=== PATIENT | male | born 1965 | race Caucasian/White ===

== ENCOUNTER 2024-06-21 12:52 | Observation (INO) | payer OTHER, SELFPAY ==
[2024-06-21] VITALS (11 sets, daily range): BP systolic 136–169; BP diastolic 66–98; BMI 25.2
--- NOTE | 2024-06-21 07:09 | ED.GENMED ---
History of Present Illness
<Arelis Kahn PA-C - Last Filed: 06/21/24 10:31>
General
Chief Complaint: Chest Pain
Source: patient
Exam Limitations: none
Time Seen by Provider: 06/21/24 07:09
Nursing documentation reviewed up to this point in time: agreed with
History of Present Illness
History of Present Illness:
58 y/o M
smoker
no cardiac history
here with n/v chest pain that started this morning
nausea/vomiting started around 130 am
he vomited a few times
and then developed chest pressure shortly after around 2am
he didn't tell his about it until 6 am and at that time it was 8/10. pt has no pleuritic pain, feels pressure in his chest
feels wiped out, chills
denies cough/cold sypmtoms
was just out of town for a
no fhx of cad
no h/o htn, hld
does drink 5 days a week
has had some weight loss since xmas; doesn't have appetite
Phy Exam
<Arelis Kahn PA-C - Last Filed: 06/21/24 10:31>
Physical Exam
Physical Exam:
GENERAL: Alert , in no apparent distress
EYE: pupils equal and reactive icteric
NECK: Supple
ENT: o/p clr, mmm.
CARDIAC: Regular rate and rhythm .
LUNGS: Clear breath sounds bilaterally, no acute respiratory distress, no wheezes/rales/rhonchi
ABDOMEN: Soft, without focal tenderness, no r/g, no cvat, normal bowel sounds
NEUROLOGICAL: Alert and oriented, no focal neuro deficits
SKIN: Warm and dry, skin intact. Pale
MUSCULOSKELETAL: No edema, well perfused. neg verónica's sign
PSYCH: Normal and appropriate interaction.
Scores
<Arelis Kahn PA-C - Last Filed: 06/21/24 10:31>
Heart Score for Chest Pain Patients
STEMI patient?: No
History: Moderately Suspicious
ECG: Nonspecific Repolarization
Age: >45 - <65 years
Risk Factors: 1 or 2 Risk Factors
Troponin: </= Normal Limit
Heart Score for Chest Pain Patients: 4
Heart Score Risk: 20.3% MACE over next 6 weeks
Course
<Arelis Kahn PA-C - Last Filed: 06/21/24 10:31>
Orders/Labs/Results
Orders:
Orders
06/21/24 07:00
EKG [Electrocardiogram (*1)] Urgent
Reason for Study: Shortness of Breath
EKG- Treatment ONCE
06/21/24 07:15
CMP [Comprehensive Metabolic Panel] Urgent
Complete Blood Count/With Diff Urgent
Lipase Urgent
Magnesium Urgent
TSH Reflex To Free T4 Urgent
Comment: ADD
Troponin I Urgent
06/21/24 07:17
0.9% Sodium Chloride 1000 ml [Nss] 1,000 ml IV BOLUS
Ondansetron Injectable [Zofran] 4 mg IV NOW STA
06/21/24 07:33
Electrocardiogram (*1) Urgent
Reason for Study: Chest Pain
EKG- Treatment ONCE
06/21/24 07:37
COVID-19 Antigen Urgent
Source: Nasal Swab
Influenza A+B Rapid Molecular Urgent
MERON Source: Nasal Swab
Specimen Description:
06/21/24 07:58
CT Abd/Pel (IV only)-DH only Urgent
Comment:
Reason For Exam: vomiting, abd pain,
CR Chest - 2 Views Urgent
Comment:
Reason For Exam: ches tpain
06/21/24 08:10
Add On- LAB Urgent
Tests Added?: magnesium, tsh reflex t4
06/21/24 08:21
Add On- LAB Urgent
Tests Added?: magnesium
06/21/24 08:36
Echo 2D MMode Color/Doppler Urgent
Reason for Study: N/V, CP
06/21/24 09:59
Troponin I Routine
Abnormal Lab Results
06/21/24
07:15
WBC 12.5 H 10^3/uL
(4.8-10.8)
Absolute Neuts (auto) 11.6 H 10^3/uL
(1.4-6.5)
Absolute Lymphs (auto) 0.6 L 10^3/uL
(1.2-3.4)
Neutrophils % 93.1 H %
(42.2-75.2)
Lymphocytes % 5.1 L %
(20.5-51.1)
Monocytes % 1.2 L %
(1.7-9.3)
Glucose 178 H mg/dl
(70-99)
06/21/24 07:15
06/21/24 07:15
Vital Signs
Initial and Last Documented VS:
Initial Vital Signs
Temp Pulse Resp BP Pulse Ox
36.7 C 59 16 136/89 99
06/21/24 07:00 06/21/24 07:00 06/21/24 07:00 06/21/24 07:00 06/21/24 07:00
Last Documented Vital Signs
Temp Pulse Resp BP Pulse Ox
36.7 C 51 14 157/90 100
06/21/24 07:00 06/21/24 09:00 06/21/24 09:00 06/21/24 09:00 06/21/24 09:00
<Nito Morris, DO - Last Filed: 06/21/24 08:20>
Orders/Labs/Results
Orders:
Orders
06/21/24 07:00
EKG [Electrocardiogram (*1)] Urgent
Reason for Study: Shortness of Breath
EKG- Treatment ONCE
06/21/24 07:15
CMP [Comprehensive Metabolic Panel] Urgent
Complete Blood Count/With Diff Urgent
Lipase Urgent
Magnesium Urgent
TSH Reflex To Free T4 Urgent
Comment: ADD
Troponin I Urgent
06/21/24 07:17
0.9% Sodium Chloride 1000 ml [Nss] 1,000 ml IV BOLUS
Ondansetron Injectable [Zofran] 4 mg IV NOW STA
06/21/24 07:33
Electrocardiogram (*1) Urgent
Reason for Study: Chest Pain
EKG- Treatment ONCE
06/21/24 07:37
COVID-19 Antigen Urgent
Source: Nasal Swab
Influenza A+B Rapid Molecular Urgent
MERON Source: Nasal Swab
Specimen Description:
06/21/24 07:58
CT Abd/Pel (IV only)-DH only Urgent
Comment:
Reason For Exam: vomiting, abd pain,
CR Chest - 2 Views Urgent
Comment:
Reason For Exam: ches tpain
06/21/24 08:10
Add On- LAB Urgent
Tests Added?: magnesium, tsh reflex t4
06/21/24 08:21
Add On- LAB Urgent
Tests Added?: magnesium
06/21/24 08:36
Echo 2D MMode Color/Doppler Urgent
Reason for Study: N/V, CP
06/21/24 09:59
Troponin I Routine
Abnormal Lab Results
06/21/24
07:15
WBC 12.5 H 10^3/uL
(4.8-10.8)
Absolute Neuts (auto) 11.6 H 10^3/uL
(1.4-6.5)
Absolute Lymphs (auto) 0.6 L 10^3/uL
(1.2-3.4)
Neutrophils % 93.1 H %
(42.2-75.2)
Lymphocytes % 5.1 L %
(20.5-51.1)
Monocytes % 1.2 L %
(1.7-9.3)
Glucose 178 H mg/dl
(70-99)
06/21/24 07:15
06/21/24 07:15
Vital Signs
Initial and Last Documented VS:
Initial Vital Signs
Temp Pulse Resp BP Pulse Ox
36.7 C 59 16 136/89 99
06/21/24 07:00 06/21/24 07:00 06/21/24 07:00 06/21/24 07:00 06/21/24 07:00
Last Documented Vital Signs
Temp Pulse Resp BP Pulse Ox
36.7 C 51 14 157/90 100
06/21/24 07:00 06/21/24 09:00 06/21/24 09:00 06/21/24 09:00 06/21/24 09:00
<Arelis Kahn PA-C - Last Filed: 06/21/24 10:31>
MDM/Problems Addressed
MDM/Problems Addressed:
irasema grahamnan 58 y/o M smoker, drinker
here with n/v since 130 am, also with chest discomfort since 2 am,
ems gave nitro and asa and it got a little better
initial ekg st elevation v2, v3 possibly
repeat looked alittle better, 1st trop neg
had a few loing pauses on th emonitor, pt was asymptomatic;
not vomiting during the pauses
printed the strips and pt was seen by SIRIA meneses who ordered echo and recommended 2nd trop which is being drawn now
pt's wbc 12.[address] shows mild diffuse colitis; feel best to keep for IVF and tele monitoring; no diarrhea;
<Arelis Kahn PA-C - Last Filed: 06/21/24 10:31>
*Critical Care Note
Total Time (30-74mins, 75-104mins- exclusive of procedures): Not Applicable
ED Attending Note
<Arelis Kahn PA-C - Last Filed: 06/21/24 10:31>
-
Portions of this chart may have been created with voice recognition software.� Occasional wrong word or��sound alike� substitutions may have occurred due to the inherent limitations of voice recognition software.
<Nito Morris DO - Last Filed: 06/21/24 08:20>
ED Attending Note
Patient seen and examined by attending physician: Yes
I performed the substantive portion of visit, reviewed & personally made and approve the management plan that is documented in note by myself or OWEN.: Yes
ED Attending Note:
Seen with PA examined independently reviewed with nursing 58-year-old male present with chest pain nausea had some alcohol last night had some bradycardic on the monitor he was asymptomatic, will check his electrolytes, CT scan of his abdomen
pending, cardiology consultation pending
Discharge Plan
Departure
Patient Disposition: Admit
Date of Disposition: 06/21/24
Time of Disposition: 09:29
Admit to: Telemetry
Presentation/result/management discussed w/ accepting MD/DO: Hospitalist
Condition: Fair
Covid-19: Not Applicable
Discharge Problem:
Gastroenteritis, Chest pain, Sinus pause
Prescriptions:
No Action
No Current Medications
0
Referrals:
Cara Melendez CRNP [Specified Professional Personl] - 07/05/24 4:00 pm (You have a cardiology follow-up appointment at the [place] office [address]. Please call with questions)
UNKNOWN - PT DOES,NOT KNOW [Family Provider] -
Interventions
Interventions:
*Risk Screen - Suicide Last Done: 06/21/24 07:00
*General Assessment Last Done: 06/21/24 07:00
*Neglect/Abuse Screening Last Done: 06/21/24 07:00
*ED- Fall Risk Assessment Last Done: 06/21/24 08:26
*ED COVID-19 Vaccine History Last Done: 06/21/24 07:00
ED- Cardiac Assessment Last Done: 06/21/24 07:10
Discharge Date and Time
Print Language: YORUBA
--- NOTE | 2024-06-21 07:15 | EDRN ---
Received patient via EMS with c/o chest pain that started this morning around 0200 after he vomited multiple times. Patient received ASA 324 mg and NTG SL x1 by EMS. Patient thinks his chest pain got better. Denies abdominal pain.
[2024-06-21 07:32] LABS: % Basophils 0.3 % (0-2); % Immature Granulocytes 0.3 % (0-0.5); % Lymphocytes 5.1 % (20.5-51.1); % Monocytes 1.2 % (1.7-9.3); % Neutrophils 93.1 % (42.2-75.2); Absolute Lymphocytes 0.6 10^3/uL (1.2-3.4); Absolute Monocytes 0.2 10^3/uL (0.1-0.6); Absolute Neutrophils 11.6 10^3/uL (1.4-6.5); Hematocrit 49.5 % (39.0-52.0); Hemoglobin 16.8 g/dL (13.0-18.0); Mean Corp Hgb Conc. 33.9 g/dL (33.0-37.0); Mean Corpuscular Hgb 30.1 pg (27.0-31.0); Mean Corpuscular Volume 88.7 fL (80.0-94.0); Mean Platelet Volume 9.7 fL (7.4-10.4); Nucleated Red Blood Cells % 0 % (-); Platelet Count 310 10^3/uL (130-400); Red Blood Cell Count 5.58 10^6/uL (4.70-6.10); Red Cell Dist. Width 14.2 % (11.5-14.5); White Blood Cell Count 12.5 10^3/uL (4.8-10.8)
[2024-06-21] MEDS: NSS 1000 IV (07:36)
[2024-06-21] MEDS: ZOFRAN 4 MG IV ×2 (07:36→16:02)
[2024-06-21 07:44] LABS: ALT (SGPT) 24 U/L (0-50); AST (SGOT) 26 U/L (17-59); Albumin 4.3 g/dl (3.5-5.0); Alkaline Phosphatase 63 U/L (38-126); Blood Urea Nitrogen 20 mg/dl (9-20); Calcium 9.8 mg/dl (8.4-10.2); Carbon Dioxide 26 mmol/L (22-30); Chloride 106 mmol/L (98-107); Estimated Creatinine Clearance 102 ml/min; Glucose 178 mg/dl (70-99); Lipase 83 U/L (23-300); Potassium 4.8 mmol/L (3.5-5.1); Sodium 140 mmol/L (135-145); Total Bilirubin 0.7 mg/dl (0.2-1.3); Total Protein 6.7 g/dl (6.3-8.2); eGFR > 60.00
--- NOTE | 2024-06-21 07:55 | EDRN ---
Repeat EKG done as ordered. Patient turned onto his left side to get comfortable. Monitor started to alarm ST >120. Patient briefly with heart rate 133 then went into a pause then Afib then back into SB with occasional pauses. Patient asymptomatic.
Rhythm strips printed and reviewed by Arelis Kahn PA-C and .
[2024-06-21 07:56] LABS: Troponin I < 0.012 ng/ml
--- NOTE | 2024-06-21 08:42 | CON.CAR ---
Addendum entered and electronically signed by Niraj Lyman MD 06/21/24 10:08:
58-year-old man with probable moderate alcohol use, on no outpatient medications and little past medical history, current smoker, with nausea vomiting and chest discomfort this morning, pain at 8 out of 10 in severity, described as pressure. Still
nauseated, chest discomfort has resolved. He resumed smoking for 5 months ago having been abstinent for years. He has 3-4 beers 5 days a week
157/90, pulse 51, respirate 14, sats 100%, head neck exam unremarkable, lungs are clear, regular rate and rhythm no obvious murmurs JVD okay no obvious bruits, abdomen soft nontender, extremities without edema
Chest x-ray NAD,
CT scan possible colitis, small hiatal hernia, possible gastritis, some calcific plaque in abdominal aorta
Echo: Pending
EKG sinus bradycardia, possible septal MT, nonspecific ST elevation, slightly less apparent on second tracing
White count 12.5, hemoglobin 16.8, left shift, glucose 178, troponin undetectable, COVID-negative
Impression:
Suspected gastroenteritis
Chest discomfort
Tobacco use
Alcohol use
Atherosclerosis of abdominal aorta
Plan:
Although his EKG is not entirely normal, it seems most likely that he has a viral gastroenteritis. Currently he is without chest discomfort, and his first troponin is undetectable. It will be important to await the second troponin. Will check an
an echo to assess LV wall motion as well.
From a rhythm standpoint, he has brief episodes of what seems to be an accelerated atrial rhythm/slow atrial tachycardia with pauses, suspect all vagally mediated.
If he is admitted for gastrointestinal symptoms, would place on telemetry. Will await echo. No specific cardiac therapy required at present. If he is discharged from the emergency department we will set up outpatient follow-up.
Importance of smoking cessation stressed. Strongly recommended reduction or abstinence from alcohol as well.
Given atherosclerotic change of aorta, we will have a low threshold for statin therapy. Aspirin is probably optional but could be considered given evidence of atherosclerotic disease.
We will await troponin and echo. If second troponin is negative, stress testing probably optional or not needed.
Original Note:
Consultation
Consultation Request
Date/Time Consultation Performed: 06/21/24
Requesting Provider: Dr. Morris
Performing Provider: Antonina Dunbar PA-C for Dr. SIRIA Lyman
Reason for Consultation: CP
Medical History
-
Chief Complaint: N/V, CP
History of Present Illness:
Patient is a 58-year-old male with past medical history of several lipoma removals however no cardiac history who presents to [facility] for evaluation of nausea vomiting/chest pain. He states that he awoke at 1:30 AM with nausea and vomiting
followed by left to central chest discomfort which she describes as a dull/achy pressure. He denies radiation of pain. He was given aspirin and sublingual nitro in the ER with some improvement. Reports his discomfort is mild at present. He
denies lightheadedness or dizziness. Does report feelings of fevers and chills. He reports he vomited multiple times including once in the ER. He remains with some nausea, however this is calming down status post Zofran. They had traveled over
the weekend for a . No sick contacts. Initial troponin negative. Cardiology consulted for evaluation. Patient's endorses that work has been very stressful for patient recently. Denies recent limitations in activity, or chest
discomfort/shortness of breath with exertion. Covid/flu negative in ER.
PMH:
Lipoma removal
Tobacco use
Past Medical History
Past Medical History: Other (in HPI)
Social History
Tobacco: Smoker
Alcohol: Occasional (2-3 beers 5 times per week)
Personal:
Living: With Family
Employment: Employed
Family History
Family History: Other (leukemia in father)
Allergies / Home Medications
Allergy/AdvReac Type Severity Reaction Status Date / Time
adhesive tape Allergy Rash Verified 06/21/24 07:08
Review of Systems
-
History Source: Patient and Family
All other systems: Negative unless noted
Physical Exam
Vital Signs
Temp Pulse Resp BP Pulse Ox
98.1 F 55 24 149/91 97
06/21/24 07:00 06/21/24 08:00 06/21/24 08:00 06/21/24 08:00 06/21/24 08:00
Lab Results
06/21/24 07:15
06/21/24 07:15
Troponin I < 0.012 ng/ml 06/21/24 07:15
Physical Exam
General: No Apparent Distress and Comfortable
HEENT: Normocephalic, Anicteric and Moist Mucous Membranes
Respiratory: Clear and Non Labored Respirations
Cardiac: S1/S2 and Regular Rhythm; Negative Murmur
GI: Soft and Normal Bowel Sounds
Musculoskeletal: No Clubbing, No Cyanosis and No Edema
Skin: Warm and Dry
Neuro: AO x 3
Impression / Plan
-
Primary Crankshaft Straightener: none prior to admission
Assessment:
Presentation with N/V, CP
Negative trop x1
Sinus bradycardia
Leukocytosis
Mild colitis by CTAP
Lipoma removal
Tobacco use
ECHO 06/21/24: pending
Plan:
-Patient presents with nausea and vomiting as well as chest discomfort starting overnight. covid/flu negative.
-Initial EKG with concern for possible mild septal ST elevation, however resolved by repeat EKG. no prior to compare. patient seen urgently in ER
-Status post 324 mg aspirin as well as sublingual nitro x 1 per patient/, presuming preER as not on med list here
-Initial troponin negative. Repeat
-Check urgent echo
-with some radha on tele, asymptomatic. possibly vagally mediated. follow on tele in ER. could consider for OP contract assistant
-Remains with some nausea, however reports improving status post Zofran
-With mild leukocytosis, and feelings of fever/chills. CXR and UA unrevealing. CTAP with evidence of mild colitis�defer treatment to ED/primary service
-Suspect noncardiac etiology of symptoms, however will follow results of testing
-Will arrange outpatient cardiac follow-up
-Discussed with patient and at bedside
Data Reviewed
-
EKG: Tracing Personally Visualized and interpreted
Radiology: Report Reviewed by me
CT Scan: Report Reviewed by me
Labs: Labs Reviewed by me
[2024-06-21 08:44] LABS: COVID-19 Antigen Negative (Negative)
[2024-06-21 09:20] LABS: Magnesium 1.9 mg/dl (1.6-2.3)
[2024-06-21 10:34] LABS: Troponin I < 0.012 ng/ml
--- NOTE | 2024-06-21 11:31 | HPS.HSE ---
Family Physician
-
Family Physician: NOT KNOW UNKNOWN - PT DOES
Chief Complaint
-
Chest pain, vomiting
History of Present Illness
58-year-old male who was awakened in the middle of the night with several episodes of severe vomiting and subsequently developed chest pain.
Denies any diarrhea. Denies any abdominal pain but feels sore as a result of vomiting. Denies any medical history. Has not been to his primary care doctor in over a year. Not on any home medications.
Travel to [facility] over the weekend. No one at home is ill.
Last ate at home, dinner last night.
Medical History
Past Medical History
Past Medical History: Reports None
Past Surgical History: Reports None
Social History
Tobacco: Smoker
Alcohol: Daily
Drug: Marijuana (Twice per week)
Personal:
Living: With Family
Family History
Family History: Not pertinent
Allergies / Home Medications
Allergies reflects when Allergies were last updated in [facility].
Home Medications with original date entered in [facility]
Allergy/Medication List:
Allergies
Allergy/AdvReac Type Severity Reaction Status Date / Time
adhesive tape Allergy Rash Verified 06/21/24 07:08
Home Medications
No Meds [No Current Medications] 06/21/24
Review of Systems
-
History Source: Patient
A 12 point ROS was completed and negative except as noted: Yes
Physical Exam
Vital Signs
Vital Signs
Temp Pulse Resp BP Pulse Ox
98.1 F 51 14 157/90 100
06/21/24 07:00 06/21/24 09:00 06/21/24 09:00 06/21/24 09:00 06/21/24 09:00
Physical Exam
General: Well Developed, Well Nourished, No Apparent Distress and Comfortable
HEENT: NormoCephalic, Anicteric and Moist mucous membranes
Respiratory: Clear
Cardiac: S1/S2 and Regular Rhythm
GI: Soft, Non Tender and Non Distended
Musculoskeletal: No Clubbing, No Cyanosis and No Edema
Skin: Warm and Dry
Neuro: AO x 3
Hematologic/Lymphatic: No Lymphadenopathy
Psych: Calm
Laboratory Results
-
06/21/24 07:15
06/21/24 07:15
Laboratory Results
Total Bilirubin 0.7 mg/dl (0.2-1.3) 06/21/24 07:15
AST 26 U/L (17-59) 06/21/24 07:15
ALT 24 U/L (0-50) 06/21/24 07:15
Alkaline Phosphatase 63 U/L (38-126) 06/21/24 07:15
Troponin I < 0.012 ng/ml 06/21/24 09:59
Lipase 83 U/L (23-300) 06/21/24 07:15
Impression/Plan
-
Intractable vomiting -likely due to acute gastritis. Denies diarrhea. Continue IV fluids, antiemetics. Clear liquid diet, advance as tolerated. Perhaps alcohol is playing a role with the vomiting. Blood work does not reveal ketosis.
CT abdomen/pelvis shows mild acute colitis but patient denies diarrhea. Moderate diverticulosis noted. Findings of moderate gastritis noted. He has never had an EGD, last colonoscopy was several years ago and reportedly unremarkable.
Chest pain -atypical and suspect related to vomiting induced esophagitis. Denies hematemesis. Troponins negative x 2. EKG with nonspecific changes. Appreciate cardiology input. Echocardiogram completed, report pending.
Elevated blood pressure -suspect undiagnosed essential hypertension. Patient does not check pressures at home. Has not been to his physician in quite some time. Recommend close outpatient follow-up.
Alcohol use disorder -recommend that he cut down. Currently drinks 5 days/week, mainly beer. Denies liquor. Watch for any withdrawal symptoms.
Tobacco dependence -abstinence encouraged.
Marijuana use -we discussed the fact that marijuana can induce vomiting. He denies history of previous vomiting.
Full code
Dispo -anticipate discharge home tomorrow if stable. Updated family at the bedside.
Family updated at the bedside.
[2024-06-21 11:40] LABS: TSH Reflex To Free T4 0.42 uIU/ml (0.47-4.68)
[2024-06-21 12:08] LABS: Free T4 1.46 ng/dl (0.78-2.19)
[2024-06-21] MEDS: MAALOX 30 ML PO (13:10)
--- NOTE | 2024-06-21 15:02 | EDRN ---
Patient taken to room 1143-2 on monitor by maintenance tech.
[2024-06-21] MEDS: PROTONIX IV 40 MG IV (15:49)
[2024-06-21] MEDS: NSS (PRESERVATIVE FREE) 10 ML IV (15:49)
[2024-06-21] MEDS: LR 1000 IV (15:50)
[2024-06-21] MEDS: LOVENOX 40 MG SC (17:05)
[2024-06-22 03:05] VITALS: BP 113/80
[2024-06-22 04:23] VITALS: BP 113/80
--- NOTE | 2024-06-22 05:35 | DOWNTIME ---
There was a Scaled Agile Client City Designer Downtime on 06/22/2024 from 0100 to 06/23/2023 at 0420 . Downtime documentation of patient's care, including medication administrations, has been reconciled in the electronic record per guidelines. Refer to the
patient's paper chart under the miscellaneous tab to see printed paper medication records and downtime forms.
[2024-06-22 07:33] VITALS: BP 146/79
[2024-06-22] MEDS: NSS (PRESERVATIVE FREE) 10 ML IV (08:12)
[2024-06-22] MEDS: PROTONIX IV 40 MG IV (08:13)
--- NOTE | 2024-06-22 08:13 | W.PN.CARDCBS ---
Addendum entered and electronically signed by Heladio Rodriguez MD 06/22/24 10:35:
I saw and examined the patient.
The Apprentice Cosmetologist's note was reviewed and I agree with the note.
Comment: Briefly, 58-year-old man presenting with nausea and vomiting as well as chest discomfort and was diagnosed with gastroenteritis. Cardiology was consulted to evaluate his chest discomfort for possible cardiac etiology.
Patient is resting comfortably this morning, no further chest discomfort today
Troponin has been serially undetectable
Twelve-lead ECGs reviewed and do not show any overt ischemic changes
Transthoracic echocardiogram with normal LV function and no regional wall motion abnormalities
Reviewed with the patient that we can arrange for outpatient stress test if he is interested in this can be discussed further at his follow-up appointment
Monitored on telemetry here and nocturnal PVCs and PACs were noted
Could consider outpatient sand caster apprentice to further assess his burden
Also discussed possible outpatient sleep study with him as untreated CARMEN may be a cause of this
Stable for discharge from my perspective, we will arrange outpatient follow-up
Original Note:
Today's Communication / Plan
-
repeat EKG today
follow BPs at home
will arrange OP cardiac follow up
ok for DC
Impression / Plan
-
Primary Director Telehealth: none prior to admission
Assessment:
Presentation with N/V, CP
Negative trop x1
Sinus bradycardia
Leukocytosis
Mild colitis by CTAP
Lipoma removal
Tobacco use
ECHO 06/21/24: EF 65%, MAC, trace MR, aortic sclerosis, trace AR, normal right heart
Plan:
-Patient presented with nausea and vomiting, presumed viral gastroenteritis. In setting of this had chest discomfort resulting in cardiology consultation
-No chest discomfort overnight. No vomiting since 4PM yesterday
-Troponins remain negative
-Echocardiogram with results as above. Discussed with patient 06/22
-Was noted to have some bradycardia on telemetry in the setting of vomiting, felt to be vagally mediated. On review of telemetry overnight appears to be resolved. Of note patient did have several runs of PVCs in the pattern of bigeminy as well as
2 brief episodes of atrial tachycardia, all while sleeping and asymptomatic
-repeat EKG today.
- endorses patient snores. consider for OP sleep study to rule out sleep apnea
-BPs also noted to be elevated however in setting of acute illness. will reassess as OP and if remains elevated consider initiation of antihypertensive
-could consider for OP stress testing and sand caster apprentice as OP
-Will arrange outpatient cardiac follow-up
-ok for DC to home today
Progress Note - Director Telehealth
Subjective
Date of Service: June 22, 2024
reports some abd cramping but no CP or vomiting.
Objective
Labs:
06/21/24 07:15
06/21/24 07:15
Labs
Hgb 16.8 g/dL (13.0-18.0) 06/21/24 07:15
Hct 49.5 % (39.0-52.0) 06/21/24 07:15
Plt Count 310 10^3/uL (130-400) 06/21/24 07:15
Sodium 140 mmol/L (135-145) 06/21/24 07:15
Potassium 4.8 mmol/L (3.5-5.1) 06/21/24 07:15
BUN 20 mg/dl (9-20) 06/21/24 07:15
Creatinine 0.8 mg/dL (0.7-1.3) 06/21/24 07:15
Glucose 178 mg/dl (70-99) H 06/21/24 07:15
Troponins
06/21/24 06/21/24
07:15 09:59
Troponin I < 0.012 < 0.012
Vital Signs and I&O:
Vital Signs
Temp Pulse Resp BP Pulse Ox
98.2 F 63 17 146/79 98
06/22/24 07:33 06/22/24 07:33 06/22/24 07:33 06/22/24 07:33 06/22/24 07:33
Vital Signs
Temp Pulse Resp BP Pulse Ox
98.2 F 63 17 146/79 98
06/22/24 07:33 06/22/24 07:33 06/22/24 07:33 06/22/24 07:33 06/22/24 07:33
Intake & Output
06/20/24 06/21/24 06/22/24 06/23/24
07:59 07:59 07:59 07:59
Intake Total 1240 / 1240
Balance 1240 / 1240
Physical Exam
Physical Exam
GEN: No distress, awake, alert, oriented x3
HEENT: supple, anicteric, mmm, eomi
LUNGS: no audible wheezes
CV: Reg on tele
EXT: No cyanosis, clubbing, edema
NEURO: Gross non-focal
SKIN: Warm, pink, dry. No rash
--- NOTE | 2024-06-22 09:25 | W.PN.HOSP.TC ---
Today's Communication/Plan
-
Advance diet
Discharge
Assessment / Plan
Assessment / Plan
Gen-AAOx3, NAD
HEENT-NC, AT, anicteric, clear oral mm
Neck-supple
CV-reg, no M, +S1/S2
Lungs-clear B/L
Abd-soft, NT, ND
Ext-no edema
Musculoskeletal-no cyanosis, clubbing
Skin-warm and dry
Neuro-grossly non-focal
Psych-calm, cooperative
Intractable vomiting -likely due to acute gastritis. Symptoms improved. Continue Protonix. Advance to solid food diet today. Anticipate discharge if tolerates diet.
If symptoms return or he worsens, will need GI consultation and possible EGD. Discussed in detail with patient.
Chest pain -atypical and suspect related to vomiting induced esophagitis. Denies hematemesis. Troponins negative x 2. EKG with nonspecific changes. Appreciate cardiology input. Echocardiogram shows LVEF 65%, trace MR, normal right heart with
pulmonary artery systolic pressure 29 mmHg.
Elevated blood pressure -suspect undiagnosed essential hypertension. Patient does not check pressures at home. Has not been to his physician in quite some time. Recommend close outpatient follow-up.
Alcohol use disorder -recommend that he cut down. Currently drinks 5 days/week, mainly beer. Denies liquor. Watch for any withdrawal symptoms.
Tobacco dependence -abstinence encouraged.
Marijuana use -we discussed the fact that marijuana can induce vomiting. He denies history of previous vomiting. We also discussed marijuana potentially increasing risk for myocardial infarction. Abstinence recommended.
Full code
Dispo -anticipate discharge home today if he tolerates diet.
32-minute spent in discharge process.
Anticipated Discharge: Today
Subjective/Interval History
-
Date of Service: June 22, 2024
Patient seen and examined. Feeling better overall.
Objective Data
-
Vital Signs:
Vital Signs
Temp Pulse Resp BP Pulse Ox
98.2 F 63 17 146/79 98
06/22/24 07:33 06/22/24 07:33 06/22/24 07:33 06/22/24 07:33 06/22/24 07:33
I&O
06/21/24 06/22/24 06/23/24
06:59 06:59 06:59
Intake Total 1240 / 1240
Balance 1240 / 1240
Review of Systems
-
History Source: Patient
All other systems: Reviewed and negative
--- NOTE | 2024-06-22 09:30 | W.DS.TRANS ---
DC Summary - Supervisor Felting
-
Discharge Instructions:
Discharge Diagnosis/Procedures Acute gastritis, chest pain
Diet Low Cholesterol,Low Fat
Activity As tolerated
Driving Restrictions As prior to admission
Bathing Restrictions None
Instructions:
Stand-Alone Forms:
Changes to Home Medications: No
Discharge Medications:
DC Medications w/original date entered in [employer]
ondansetron 4 mg disintegrating tablet 4 mg PO Q6H PRN nausea and vomiting #14 tabs 06/22/24
pantoprazole 40 mg tablet,delayed release (Protonix) 40 mg PO DAILY #30 tabs 06/22/24
Home Medication Changes
Pending Results: No
--- NOTE | 2024-06-22 10:27 | CM ---
Patient seen at bedside. Patient states he is for discharge home today with patient spouse to provide transportation. CM provided packet on advance directives and an OBS form. Patient given OBS and CM reviewed form with patient, he is to read over
and complete. Patient lives in a one story home. Patient PCP is from [facility] and he uses the [facility] in [place]. Patient plan is for discharge home with no needs.
Plan; home with no needs
[2024-06-22 11:26] VITALS: BP 136/72
== END 2024-06-22 13:33 | disposition home or self-care (01) ==
LOC: 1 ACUTE 12:52
PROVIDERS: Physician Assistant; ADMITTING PHYSICIAN Hospitalist; CONSULT PHYSICIAN Internal Medicine Cardiovascular Disease; EMERGENCY PHYSICIAN Emergency Medicine
DX: K29.00 Acute gastritis without bleeding (principal); R07.9 Chest pain, unspecified; R11.2 Nausea with vomiting, unspecified; R03.0 Elevated blood-pressure reading, without diagnosis of hypertension; R00.1 Bradycardia, unspecified; I49.3 Ventricular premature depolarization; I47.19 Other supraventricular tachycardia; R00.8 Other abnormalities of heart beat; F12.90 Cannabis use, unspecified, uncomplicated; R63.4 Abnormal weight loss; I70.0 Atherosclerosis of aorta; F10.10 Alcohol abuse, uncomplicated; K57.30 Diverticulosis of large intestine without perforation or abscess without bleeding; F17.200 Nicotine dependence, unspecified, uncomplicated; K44.9 Diaphragmatic hernia without obstruction or gangrene; N28.1 Cyst of kidney, acquired; K76.89 Other specified diseases of liver; N40.0 Benign prostatic hyperplasia without lower urinary tract symptoms; I34.81 Nonrheumatic mitral (valve) annulus calcification; Z68.25 Body mass index [BMI] 25.0-25.9, adult; Z11.52 Encounter for screening for COVID-19; Z80.6 Family history of leukemia
CPT/HCPCS: 71046; 74177; 80053; 83690; 83735; 84439; 84443; 84484; 85025; 87502; 87811; 93005; 93306; 96361; 96374; 99285; 99406; G0378; Q9967

== ENCOUNTER → 2024-07-18 07:37 | Outpatient (REF) | payer OTHER, SELFPAY | LOC: RCS 07:37 | PROVIDERS: ATTENDING PHYSICIAN Nurse Practitioner; FAMILY PHYSICIAN Family Medicine | DX: R07.89 Other chest pain (principal) | CPT/HCPCS: 93017 ==